=== PATIENT | male | born 1970 | race Caucasian/White ===

== ENCOUNTER 2019-03-25 18:44 | Emergency (ER) | payer OTHER ==
[~2019-03-25] VITALS: Ht 170.2 cm; Wt 63.0 kg
[2019-03-25 19:03] VITALS: Ht 170.2 cm; Wt 63.0 kg
[2019-03-25 20:13] VITALS: BP 136/69
== END 2019-03-25 20:13 | disposition home or self-care (01) ==
LOC: ED 18:44
DX: B37.9 Candidiasis, unspecified (principal); J06.9 Acute upper respiratory infection, unspecified; Z88.1 Allergy status to other antibiotic agents

== ENCOUNTER 2020-04-14 06:30 | Emergency (ER) | payer OTHER ==
[~2020-04-14] VITALS: Ht 165.1 cm; Wt 67.1 kg
[2020-04-14 06:37] VITALS: Ht 165.1 cm; Wt 67.1 kg
[2020-04-14 07:21] LABS: BASOPHIL % 0.2 % (0-2); PLATELET COUNT 257 x10^3mcL (130-400); RED CELL DISTRIBUTION WIDTH 13.1 % (11.5-14.5)
[2020-04-14 07:30] LABS: CALCIUM 8.7 mg/dL (8.5-10.1); CARBON DIOXIDE 25.6 mmol/L (21-32); CHLORIDE SERUM 103 mmol/L (98-107); CREATININE SERUM 0.9 mg/dL (0.7-1.3); GFR1 > 60 mL/min; GLUCOSE SERUM 133 mg/dL (74-106); POTASSIUM SERUM 3.4 mmol/L (3.5-5.1); SODIUM SERUM 139 mmol/L (136-145)
[2020-04-14 07:34] LABS: ALBUMIN 3.7 g/dL (3.4-5.0); ALKALINE PHOSPHATASE 111 U/L (46-116); ALT/SGPT 68 U/L (16-63); AST/SGOT 28 U/L (15-37); BILIRUBIN TOTAL 0.63 mg/dL (0.20-1.00); LIPASE 288 IU/L (73-393); TOTAL PROTEIN, SERUM 7.8 g/dL (6.4-8.2)
[2020-04-14 07:36] VITALS: BP 115/74
== END 2020-04-14 08:40 | disposition home or self-care (01) ==
LOC: ED 06:30
PROVIDERS: Emergency Medicine
DX: R10.11 Right upper quadrant pain (principal); R11.0 Nausea; Z88.1 Allergy status to other antibiotic agents

== ENCOUNTER 2020-04-21 15:22 | Emergency (ER) | payer OTHER ==
[~2020-04-21] VITALS: Ht 165.1 cm; Wt 65.3 kg
[2020-04-21 15:28] VITALS: Ht 165.1 cm; Wt 65.3 kg
[2020-04-21 17:28] LABS: BASOPHIL % 0.2 % (0-2); PLATELET COUNT 257 x10^3mcL (130-400); RED CELL DISTRIBUTION WIDTH 13.2 % (11.5-14.5)
[2020-04-21 17:31] LABS: microscopic required? NO
[2020-04-21 17:34] LABS: CALCIUM 8.9 mg/dL (8.5-10.1); CARBON DIOXIDE 29.6 mmol/L (21-32); CHLORIDE SERUM 103 mmol/L (98-107); CREATININE SERUM 0.9 mg/dL (0.7-1.3); GFR1 > 60 mL/min; GLUCOSE SERUM 100 mg/dL (74-106); POTASSIUM SERUM 3.7 mmol/L (3.5-5.1); SODIUM SERUM 139 mmol/L (136-145)
[2020-04-21 17:40] LABS: ALBUMIN 4.4 g/dL (3.4-5.0); ALKALINE PHOSPHATASE 113 U/L (46-116); ALT/SGPT 53 U/L (16-63); AST/SGOT 25 U/L (15-37); BILIRUBIN TOTAL 0.5 mg/dL (0.20-1.00); LIPASE 113 IU/L (73-393)
[2020-04-21 17:41] LABS: urine erythrocyte NEGATIVE (NEGATIVE)
[2020-04-21 17:45] LABS: TOTAL PROTEIN, SERUM 8.6 g/dL (6.4-8.2)
[2020-04-21 21:58] VITALS: BP 121/65
== END 2020-04-21 21:58 | disposition home or self-care (01) ==
LOC: ED 15:22
PROVIDERS: Emergency Medicine
DX: R10.11 Right upper quadrant pain (principal); Z88.1 Allergy status to other antibiotic agents
CPT/HCPCS: Q9966; Q9967

== ENCOUNTER 2020-05-26 18:00 | Emergency (ER) | payer OTHER ==
[~2020-05-26] VITALS: Ht 167.6 cm; Wt 62.1 kg
[2020-05-26 18:27] VITALS: Ht 167.6 cm; Wt 62.1 kg
[2020-05-26 19:59] LABS: BASOPHIL % 0.3 % (0.2-1.5); PLATELET COUNT 295 x10^3mcL (152-348); RED CELL DISTRIBUTION WIDTH 13.3 % (12.1-16.2)
[2020-05-26 20:06] LABS: rbc morphology (normal/abnorm) NORMAL (NORMAL)
[2020-05-26 20:24] LABS: CARBON DIOXIDE 27.8 mmol/L (21-32); CHLORIDE SERUM 101 mmol/L (98-107); CREATININE SERUM 1.1 mg/dL (0.7-1.3); GFR1 > 60 mL/min; GLUCOSE SERUM 112 mg/dL (74-106); POTASSIUM SERUM 3.7 mmol/L (3.5-5.1); SODIUM SERUM 140 mmol/L (136-145)
[2020-05-26 20:28] LABS: ALBUMIN 4.3 g/dL (3.4-5.0); ALKALINE PHOSPHATASE 119 U/L (46-116); ALT/SGPT 64 U/L (16-63); AST/SGOT 24 U/L (15-37); BILIRUBIN TOTAL 0.58 mg/dL (0.20-1.00)
[2020-05-26 20:40] LABS: TOTAL PROTEIN, SERUM 8.7 g/dL (6.4-8.2)
[2020-05-26 20:57] VITALS: BP 145/71
== END 2020-05-26 20:57 | disposition home or self-care (01) ==
LOC: ED 18:00
DX: K29.70 Gastritis, unspecified, without bleeding (principal); Z88.1 Allergy status to other antibiotic agents